=== PATIENT | male | born 1965 | race Caucasian/White ===

== ENCOUNTER 2019-04-08 17:18 | Inpatient (IN) | payer OTHER ==
[~2019-04-08] VITALS: Ht 177.8 cm; Wt 78.0 kg
[2019-04-08 17:42] LABS: ABSOLUTE NEUTROPHILS 6.8 thou/uL (1.4-8.2); BASOPHILS 0.4 % (0.0-2.0); HEMOGLOBIN 16.2 gm/dL (14.0-18.0); LYMPHOCYTES 5.4 % (24.0-44.0); MCH 33.9 pg (26.0-34.0); MCHC 34.6 g/dL (28.0-37.0); MCV 98.1 fL (80.0-100.0); MONOCYTES 10.3 % (1.0-8.0); POLYS 83.9 % (36.0-66.0); RBC 4.79 mil/uL (4.50-6.00); WBC 8.1 thou/uL (4.0-11.0)
[2019-04-08 17:50] LABS: ANION GAP 14 mmol/L (7-16); BUN 21 mg/dL (7-18); CALCIUM 9.1 mg/dL (8.5-10.1); CHLORIDE 95 mmol/L (98-107); CO2 23 mmol/L (21-32); GLUCOSE 153 mg/dL (74-106); POTASSIUM 3.2 mmol/L (3.5-5.1); SODIUM 132 mmol/L (136-145)
[2019-04-08 17:57] LABS: ALBUMIN 3.9 g/dL (3.4-5.0); MAGNESIUM 1.7 mg/dL (1.8-2.4); SGOT 190 U/L (15-37); SGPT 177 U/L (30-65); TOTAL BILIRUBIN 1.8 mg/dL (<0.1-1.0); TOTAL PROTEIN 7.8 g/dL (6.4-8.2)
[2019-04-08 18:07] LABS: SALICYLATE < 2.8 mg/dL (2.8-20.0)
[2019-04-08 18:12] LABS: PLATELET COUNT 63 thou/uL (150-400)
[2019-04-08 18:13] LABS: PLATELET ESTIMATE DECREASED
[2019-04-08 21:34] LABS: URINE BILIRUBIN 2+ (Negative); URINE BLOOD 3+ (Negative); URINE CLARITY SL CLOUDY; URINE COLOR ORANGE; URINE GLUCOSE-RANDOM* NEGATIVE (Negative); URINE KETONES 1+ (Negative); URINE LEUKOCYTES-REFLEX NEGATIVE (Negative); URINE NITRITE-REFLEX NEGATIVE (Negative); URINE PROTEIN (DIPSTICK) 3+ (Negative); URINE SPECIFIC GRAVITY 1.025 (1.005-1.035)
[2019-04-08 21:51] LABS: AMP/METHAMP Negative (Negative); BARBITURATES Negative (Negative); BENZODIAZEPINES Negative (Negative); COCAINE Negative (Negative); METHADONE Negative (Negative); OPIATES Negative (Negative); PCP Negative (Negative)
[2019-04-08 22:09] LABS: BACTERIA-REFLEX 1-9 Few /HPF (None Seen); MUCUS 4-6 Moderate strn/LPF (None Seen); SQUAMOUS 0-3 Few /LPF (0-3); URINE RBC >20 Many /HPF (0-2); URINE WBC-REFLEX 0-5 Rare /HPF (0-5)
[2019-04-08 22:10] LABS: CELLULAR CASTS 0-3 Few /LPF (None Seen); CRYSTALS None Seen /LPF (None Seen)
[2019-04-08 23:32] VITALS: BP 120/91
[2019-04-09] VITALS (44 sets, daily range): BP systolic 106–178; BP diastolic 77–135
--- NOTE | 2019-04-09 06:30 | NUR ---
ARRIVED IN ICU FROM ER AT 0125. PT ON PRECEDEX GTT AND SEDATED AT THE TIME. WITH STIMULATION, PT WAKES AND BECOMES RESTLESS AND IMPULSIVE. PT WAS INITIALLY DISORIENTED, BUT WAS ABLE TO ANSWER SOME ORIENTATION QUESTIONS LATER IN THE MORNING. PT GIVEN ATIVAN X1, PER CIWA PROTOCOL. POTASSIUM AND MAG REPLACED, REDRAW ORDERED. WILL CONTINUE TO MONITOR.
[2019-04-09 08:07] LABS: MAGNESIUM 2.4 mg/dL (1.8-2.4); POTASSIUM 3.4 mmol/L (3.5-5.1)
--- NOTE | 2019-04-09 11:09 | NUR ---
Assumed care at 0700. PT roused easily to tactile stimulation. Mild tremors noted. Precedex was titrated down to 1.2 at 0900. PT later sat up and was able to correctly identify the year and where he was. However PT did not know what day of the week and began speaking about his son. PT fell back asleep after communication with nurse. High fall risk precautions in place. Nurse will continue to monitor.
--- NOTE | 2019-04-09 13:28 | EKG ---
[address] [place] [employer] [address] ELECTROCARDIOGRAM REPORT Name: JEZ BUSH Room #: 244-P ADM IN M.R.#: [id number] Admission: 04/08/19 Attend Phys: Papo Sequeira MD Discharge: Date of : 61 Report #: [id number] THIS REPORT FOR: //name// [facility] ED Test Date: 2019-04-08 Test Time: 17:22:56 Pat Name: JEZ BUSH Department: Room: 244 Gender: M Rehab Assistant: TAYLOR : 1965 Requested By: David Hernandez Order Number: [id number] MD: Tanner Ortega Measurements Intervals Kouts Rate: 120 P: 23 KS: 145 QRS: -59 QRSD: 87 T: 2 QT: 339 QTc: 479 Interpretive Statements Sinus tachycardia Left anterior hemiblock No previous ECG available for comparison Electronically Signed On 04-09-2019 13:28:04 [employer] by Tanner Ortega [email or web address] <ELECTRONICALLY SIGNED> By: Tanner Ortega MD, [facility] 04/09/19 1328 1722 1722 Tanner Ortega MD, FACC /EPI
--- NOTE | 2019-04-09 16:47 | NUR ---
At 1550 PT was able to correctly use his call light. Nurse assisted PT to commode with gait belt and another staff member for stand by ast. PT's gait is unsteady but strength is moderate. PT appeared to have trouble focusing his vision. He was not able to see the commode or the bed on the way back without nursing pointing it out to him. PT is A&Ox4 but short term memory appears impaired. Precedex gtt has been titrated down to 0.6 and IVF are running at 100 mls/h. Bed alarm is on. High fall risk precautions are in place. Call light is within reach. Nurse will continue to monitor.
--- NOTE | 2019-04-09 21:30 | NUR ---
FOUND COOK (32 DOLLARS) IN PT'S SOILED JUANITA'S POCKET. PT REQUESTED TO HAVE IT SENT HOME WITH FRIEND, SOFI. PT ALSO HAD HIS CLOTHES SENT HOME WITH FRIEND TO WASH.
[2019-04-10] VITALS (23 sets, daily range): BP systolic 129–184; BP diastolic 95–123
--- NOTE | 2019-04-10 07:41 | NUR ---
ASSUMED CARE OF PT AT 1900. PT REMAINS ON PRECEDEX GTT FOR ETOH W/D; GTT HAS BEEN TITRATED DOWN TOLERATED. PT ORIENTED AND CALM THROUGHOUT THE NIGHT, BUT WAS IMPULSIVE AT TIMES. PT IS PROGRESSING TOWARDS GOALS. WILL CONTINUE TO MONITOR.
--- NOTE | 2019-04-10 17:42 | NUR ---
ASSUMED CARE @ 0700 04/10/18, PT ASSESSMENTS AND VSS COMPLETE PER ICU PROTOCOL. DR GALEANO ROUNDED TODAY, PT STILL ON PRECEDEX, WEANING OFF, ATIVAN USED PRN . PT COMPLAINED ABOUT TONGUE PAIN SECONDARY TO SEIZURE INCIDENT, DR GALEANO PAGED, NEW ORDERS RECIEVED. BELONGINGS UPDATED ON [employer]. PROGRESSING TOWARDS PLAN OF CARE.
[2019-04-11] VITALS (15 sets, daily range): BP systolic 107–170; BP diastolic 74–123
--- NOTE | 2019-04-11 06:00 | NUR ---
ASSUMED CARE OF PT AT 1900. PRECEDEX GTT TURNED OFF AT 1930. A FEW HOURS LATER, PT BECAME VERY RESTLESS AND IMPULSIVE. PRECEDEX GTT TURNED BACK ON AND ATIVAN GIVEN. BP ELEVATED AT TIMES; HYDRALAZINE GIVEN. NO OTHER SIGNIFICANT EVENTS OVERNIGHT. WILL CONTINUE TO MONITOR.
[2019-04-11 08:21] LABS: MAGNESIUM 1.8 mg/dL (1.8-2.4)
[2019-04-11 08:23] LABS: POTASSIUM 2.9 mmol/L (3.5-5.1)
--- NOTE | 2019-04-11 12:26 | NUR ---
PT ALERT AND ORIENTED. UNDERSTANDING OF WHAT BROUGHT HIM TO THE HOSPITAL. STATES HE FEELS BACK TO HIS BASELINE. NOTED SLIGHT TREMOR. ACCORDING TO PATIENT THIS IS CHRONIC. VSS. ABLE TO TITRATE OFF PRECEDX GTT. WILL SUPPLEMENT WITH PRN ATIVAN FOR CIWA SCORES. RESTING COMFORTBLY THROUGH OUT THE MORNING. TOLERATING DIET. CRITICAL K+ THIS AM - REPLACED. RE-DRAW ORDERS IN. PT ON ELECTROLYTE PROTOCOL. ORDERS TO TRANSFER OUT OF ICU. PLAN TO D/C TOMORROW.
[2019-04-11] MEDS ORDERED: LISINOPRIL-HCT1 EAC1 PO (15:20)
[2019-04-11] MEDS ORDERED: ASPIR-TRIN325 MG PO (15:21)
--- NOTE | 2019-04-11 17:57 | NUR ---
PT WAS SLIGHTLY ANXIOUS WHEN TRANSFERRED FROM ICU TO 3W...CIWA 5 AND MEDICATED WITH ATIVAN WITH GOOD RELIEF OBTAINED..
[2019-04-12 05:37] VITALS: BP 169/128
--- NOTE | 2019-04-12 06:18 | NUR ---
PT PROGRESSING TOWARDS DC GOALS. TREMORS STILL PRESENT AND CIWA'S HAVE BEEN AT 5 Q4. PT UP TO BATHROOM WITH SBA. PT HAS COMPLAINTS OF PAIN IN HIS TONGUE WHERE PT BIT IT DURING SEIZURE. GAVE ORAL LIDO AND PAIN RELIEF LASTED ON A COUPLE OF HOURS. CALLED AND GOT 1X IBUPROFEN FOR PAIN AT 0430. PT BP RUNNING HIGH, HYDRALAZINE GIVEN 1X. TELE SHOWS PT RUNNING ST. PT HAS NO OTHER COMPLAINTS AND SHOULD POSSIBLE DC TODAY.
[2019-04-12 06:32] LABS: CALCIUM 8.8 mg/dL (8.5-10.1)
[2019-04-12 07:38] VITALS: BP 149/108
[2019-04-12] MEDS ORDERED: LISINOPRIL2.5 MG PO (08:42)
[2019-04-12 12:28] VITALS: BP 147/103
[2019-04-12 15:52] VITALS: BP 142/113
--- NOTE | 2019-04-12 16:27 | NUR ---
INITIAL ASSESSMENT: Received consult. BARBARA reviewed chart and spoke with nursing and attending physician. Pt was transferred to from ICU on 04/11. Pt was admitted from home due to ETOH intoxication. Psych has evaluated pt. Pt is progressing towards goals for discharge. Discharge home is anticipated for tomorrow. BARBARA met with pt at bedside. Introduced role of SW. Pt is alert/orientated x 4. Pt reports she lives at home. Prior to admission, pt was independent with ADLs. No use of DME. Pt states he has not seen a PCP in years. SW provided pt with Health Resource Guide and prescription discount card. Pt may need assistance with his medications at time of discharge. Pt requesting to be discharged by noon tomorrow. [employer] to meet with pt to provide pt with financial assistance ppwk. BARBARA is following to assist as needed with discharge planning.
--- NOTE | 2019-04-12 19:48 | NUR ---
PT IS MUCH CALMER TODAY...SLEPT LOTS OF DAY...TREMORS A BIT IMPROVED...GAIT STEADY...
[2019-04-12 21:03] VITALS: BP 158/115
[2019-04-13 00:26] VITALS: BP 135/102
[2019-04-13 03:54] VITALS: BP 170/113
--- NOTE | 2019-04-13 05:50 | NUR ---
BLOOD PRESSURES STILL HIGH ON DIASTOLIC. HR HAVE IMPROVED WITH ADDED BETA KETURAH AND STAYED A NSR. ONLY COMPLAINT IS TONGUE PAIN, AND PT STATES HIS TONGUE IS NOW ITCHING. HOURLY ROUNDING.
[2019-04-13 07:16] LABS: CALCIUM 9.2 mg/dL (8.5-10.1); POTASSIUM 3.8 mmol/L (3.5-5.1)
[2019-04-13 08:00] VITALS: BP 155/113
[2019-04-13] MEDS ORDERED: LISINOPRIL40 MG PO (08:48)
[2019-04-13] MEDS ORDERED: LOPRESSOR50 PO (08:48)
[2019-04-13] MEDS ORDERED: LIDOCAINE VISC100 ML SWISH&SPIT (08:48)
[2019-04-13 09:26] VITALS: BP 155/113
--- NOTE | 2019-04-13 10:03 | NUR ---
PT WILL D/C TO HOME TODAY...STRONGLY ENCOURAGED TO QUIT DRINKING AND ATTEND AA MEETINGS...STATES HE DOESN'T NEED MEETINGS HE JUST DRINKS OUT OF [place]... ALSO ENCOURAGED TO MONITOR HR AND BP IN A LOG AND BRING THAT TO HIS PPCP NEXT WEEK TO ADJUST BP MEDS NEEDED..
--- NOTE | 2019-04-13 15:39 | NUR ---
DISCHARGE NOTE: SW reviewed chart and spoke with nursing and attending physician. Pt is medically stable for discharge home today. Pt without health insurance. Script sent to [facility]. Case Mgmt Dept to vouch for meds. Total for 3 meds is $38.33. Pt has transportation home. BARBARA provided pt with Health Resource Guide and prescription discount card yesterday. No additional SW needs identified at this time, but is available to assist should needs arise.
[2019-04-13 15:56] VITALS: BP 155/113
== END 2019-04-13 15:45 | disposition home or self-care (01) | DRG 432 ==
LOC: ER 17:18 → ICU 21:27 → EROBS 21:27 → ICU 04-09 01:16 → 3W 04-11 14:20 → ENTRNSPT 04-13 15:34 → EDTRNSPTSTS 04-13 15:43 → 3W 04-13 15:45
PROVIDERS: Emergency Medicine; Hospitalist; Internal Medicine; Nurse Practitioner Acute Care; ADMIT Internal Medicine
DX: K70.10 Alcoholic hepatitis without ascites (principal); G92 Toxic encephalopathy; F10.239 Alcohol dependence with withdrawal, unspecified; E46 Unspecified protein-calorie malnutrition; I10 Essential (primary) hypertension; E87.6 Hypokalemia; E83.42 Hypomagnesemia; R74.0 Nonspecific elevation of levels of transaminase and lactic acid dehydrogenase [LDH]; R00.0 Tachycardia, unspecified; Z28.21 Immunization not carried out because of patient refusal; Z79.899 Other long term (current) drug therapy; Z68.24 Body mass index [BMI] 24.0-24.9, adult
CPT/HCPCS: 10078; 10879